=== PATIENT | female | born 1955 | race Caucasian/White ===

== ENCOUNTER → 2017-04-16 | Outpatient (CLI) | payer BC | LOC: ULTRA 09:24 | DX: M25.461 Effusion, right knee (principal); M79.89 Other specified soft tissue disorders ==

== ENCOUNTER → 2018-06-17 | Outpatient (CLI) | payer BC ==
[~2018-06-17] VITALS: Ht 157.5 cm; Wt 77.1 kg
[~2018-06-17] MED LIST: BENICAR40 MG PO; BYSTOLIC2.5 MG PO; HUMALOG100 UNIT/1 INH; METFORMIN HCL500 MG PO; PRAVACHOL40 MG PO; SYNTHROID75 MCG PO; ZETIA10 MG PO
--- NOTE | ~2018-06-17 | EKG ---
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
--- NOTE | ~2018-06-17 | CATHLAB ---
[facility] [place] [address] INVASIVE PROCEDURE REPORT Name: CHUY ALEX Room #: REG SELENA Marquez#: [id number] Admission: 06/17/18 Attend Phys: Keyshawn Khan, Discharge: Date of : 55 Date of Service: 06/17/181831 Report #: [id number] THIS REPORT FOR: //name// APPROVED REPORT Study performed: 06/17/2018 07:35:30 Patient Details Patient Status: Out-Patient Room #: The patient is a 63 year-old female Event Personnel Keyshawn Khan Walking Dragline Oiler, Slade Sky RN, Calos Bowers RN RN, Dejah Chan RTR, Francie Bergman Christine RTR Monitor, Christiano Castillo Monitor Procedures Performed Left Heart Cath w/or w/o Coronaries 6986955 [facility] Aortogram Abdominal Peripheral Angio 773861 Renal Bilateral Peripheral Angiography 8342959 CVRENALBIL Indication Chest pain Procedure Narrative The Right Groin^ was infiltrated with 1% Lidocaine subcutaneous anesthesia. A PINNACLE 6FR Sheath #[id number] sheath was inserted into the RFA^. Coronary angiography was performed using coronary diagnostic catheters. The right coronary system was accessed and visualized with a JR4 catheter. The left coronary system was accessed and visualized with a JL4 catheter. The left ventricle was accessed and visualized with a PIGTAIL catheter. Left ventriculogram was performed in 30 degree projection. An aortogram of the abdominal aorta was performed. Closure device was deployed with a 6 Fr MYNXGRIP 6/7F #[id number]. The patient tolerated the procedure well and there were no complications associated with the procedure. There was no hematoma. Intraoperative Conscious Sedation Sedation start time: 8.30 Case end Time: 8.58 Fentanyl 50 mcg Versed 1.5 mg Fluoro Time: 2.30 minutes Dose: DAP 3026.50 cGycm2 352 mGy [facility] [place] [address] [place] [address] INVASIVE PROCEDURE REPORT Name: [facility] Room #: [facility] [place]#: [id number] Admission: 06/17/18 Attend Phys: Keyshawn Khan, Discharge: Date of : 55 Date of Service: 06/17/18 1832 Report #: [id number] Contrast Type and Amount: Visipaque 130 ml Hemodynamics The aortic pressure is 141/71 mmHg with a mean of 54 mmHg. The left ventricular pressure is 135/24 mmHg with a mean of mmHg. The left ventricular end diastolic pressure is 34 mmHg. Conclusion #1 left main is mild ostial disease of 20-30% giving rise to LAD and circumflex #2 LAD is proximal calcification mild diffuse disease which extends around the apex. There is a mid vessel lesion long and smooth approaching 60-70%. Does not appear to be flow-limiting #3 circumflex OM proximal calcification with mild proximal disease mid vessel 30-40% giving rise to one large OM well preserved #4 dominant right coronary artery also with moderate diffuse calcification throughout focal area of higher density calcification in the distal third with the eccentric 50-60% lesion giving rise to diffusely disease PDA SUMI #5 selective renal artery injections revealed 20-30% irregularities single bilateral renal arteries ostial disease Recommendations and plan: Continue aggressive risk factor modification will add low-dose beta perry by systolic 2.5 mg for cardioprotection and vasodilatation. Patient is asymptomatic with small area of ischemia on stress echo anterior wall. We will have close follow-up and consider nuclear stress testing looking for extensive anterior wall ischemia otherwise would continue medical therapy. <ELECTRONICALLY SIGNED> By: Keyshawn Khan MD, FACC 06/17/181831 31 31 Keyshawn Khan MD, FACC /INF
[2018-06-17 07:27] VITALS: BP 110/70
[2018-06-17 07:42] LABS: HEMATOCRIT 40.2 % (37.0-47.0); HEMOGLOBIN 13.5 gm/dL (12.0-15.0); MCH 28.8 pg (26.0-34.0); MCHC 33.7 g/dL (28.0-37.0); MCV 85.6 fL (80.0-100.0); RBC 4.69 mil/uL (4.20-5.00); RDW 14.8 % (10.5-14.5); WBC 6.4 thou/uL (4.0-11.0)
[2018-06-17 07:51] LABS: CALCIUM 9.3 mg/dL (8.5-10.1); CREATININE 0.8 mg/dL (0.6-1.0); POTASSIUM 3.7 mmol/L (3.5-5.1)
== END | disposition home or self-care (01) ==
LOC: CATH 05:56
PROVIDERS: Internal Medicine Cardiovascular Disease
DX: I25.10 Atherosclerotic heart disease of native coronary artery without angina pectoris (principal); I70.1 Atherosclerosis of renal artery; I10 Essential (primary) hypertension; E11.9 Type 2 diabetes mellitus without complications; E78.00 Pure hypercholesterolemia, unspecified; Z90.49 Acquired absence of other specified parts of digestive tract; Z90.710 Acquired absence of both cervix and uterus; Z98.890 Other specified postprocedural states; Z79.899 Other long term (current) drug therapy

== ENCOUNTER 2018-11-12 23:28 | Emergency (ER) | payer BC ==
[~2018-11-12] VITALS: Ht 157.5 cm; Wt 72.6 kg
[2018-11-13 00:44] LABS: HCO3 24.4 mmol/L (22.0-26.0); PO2 VENOUS 52.5 mmHg (35.0-45.0)
[2018-11-13 00:45] LABS: ABSOLUTE NEUTROPHILS 3.6 thou/uL (1.4-8.2); BASOPHILS 1.3 % (0.0-2.0); EOSINOPHILS 3.2 % (0.0-3.0); HEMATOCRIT 35.8 % (37.0-47.0); HEMOGLOBIN 12.3 gm/dL (12.0-15.0); LYMPHOCYTES 39.6 % (24.0-44.0); MCH 29.7 pg (26.0-34.0); MCHC 34.3 g/dL (28.0-37.0); MCV 86.8 fL (80.0-100.0); MONOCYTES 9.2 % (1.0-8.0); PLATELET COUNT 367 thou/uL (150-400); POLYS 46.7 % (36.0-66.0); RBC 4.12 mil/uL (4.20-5.00); RDW 16.4 % (10.5-14.5); WBC 7.6 thou/uL (4.0-11.0)
[2018-11-13 00:57] LABS: CALCIUM 8.9 mg/dL (8.5-10.1); CREATININE 0.7 mg/dL (0.6-1.0); POTASSIUM 3.9 mmol/L (3.5-5.1)
[2018-11-13 01:18] LABS: URINE BILIRUBIN NEGATIVE (Negative); URINE BLOOD NEGATIVE (Negative); URINE CLARITY CLEAR; URINE COLOR YELLOW; URINE GLUCOSE-RANDOM* NEGATIVE (Negative); URINE KETONES NEGATIVE (Negative); URINE LEUKOCYTES NEGATIVE (Negative); URINE NITRITE NEGATIVE (Negative); URINE PROTEIN (DIPSTICK) NEGATIVE (Negative); URINE UROBILINOGEN 0.2 E.U./dl (0.2-1.0)
[2018-11-13 02:32] VITALS: BP 137/95
== END 2018-11-13 02:33 | disposition home or self-care (01) ==
LOC: ER 23:28
PROVIDERS: Student in an Organized Health Care Education/Training Program
DX: I10 Essential (primary) hypertension (principal); E11.9 Type 2 diabetes mellitus without complications; E78.00 Pure hypercholesterolemia, unspecified; Z90.710 Acquired absence of both cervix and uterus; Z90.89 Acquired absence of other organs; Z90.49 Acquired absence of other specified parts of digestive tract; Z96.659 Presence of unspecified artificial knee joint; Z87.442 Personal history of urinary calculi; Z79.4 Long term (current) use of insulin

== ENCOUNTER → 2020-02-18 | Outpatient (CLI) | payer BC | LOC: CAT 09:42 | DX: J34.2 Deviated nasal septum (principal); J32.9 Chronic sinusitis, unspecified ==

== ENCOUNTER → 2020-05-24 | Outpatient (CLI) | payer BC | LOC: SJCVCIMAG 09:57 | PROVIDERS: ATTEND Internal Medicine Cardiovascular Disease | DX: I49.3 Ventricular premature depolarization (principal); I25.10 Atherosclerotic heart disease of native coronary artery without angina pectoris; R93.1 Abnormal findings on diagnostic imaging of heart and coronary circulation; I10 Essential (primary) hypertension; E78.5 Hyperlipidemia, unspecified; E11.9 Type 2 diabetes mellitus without complications; Z79.4 Long term (current) use of insulin; Z79.82 Long term (current) use of aspirin; Z79.899 Other long term (current) drug therapy ==

== ENCOUNTER → 2020-07-23 | Outpatient (CLI) | payer BC ==
[~2020-07-23] MED LIST changes: +ASPIR 8181 MG PO; +EFFIENT10 MG PO
== END ==
LOC: SJCVC 09:30
PROVIDERS: ATTEND Internal Medicine Cardiovascular Disease
DX: R94.39 Abnormal result of other cardiovascular function study (principal); R06.02 Shortness of breath; I10 Essential (primary) hypertension; I25.10 Atherosclerotic heart disease of native coronary artery without angina pectoris; R93.1 Abnormal findings on diagnostic imaging of heart and coronary circulation; E78.00 Pure hypercholesterolemia, unspecified; E11.9 Type 2 diabetes mellitus without complications

== ENCOUNTER 2020-07-26 09:11 | Inpatient (IN) | payer BC ==
[~2020-07-26] VITALS: Ht 157.5 cm; Wt 76.2 kg
[2020-07-26] VITALS (15 sets, daily range): BP systolic 112–143; BP diastolic 63–80
[~2020-07-26 09:11] MED LIST changes: -ASPIR 8181 MG PO; -EFFIENT10 MG PO
[2020-07-26 10:19] LABS: ABSOLUTE NEUTROPHILS 3.1 thou/uL (1.4-8.2); BASOPHILS 1.1 % (0.0-2.0); HEMATOCRIT 35.9 % (37.0-47.0); LYMPHOCYTES 28.7 % (24.0-44.0); MCH 28.9 pg (26.0-34.0); MCHC 33.5 g/dL (28.0-37.0); MCV 86.2 fL (80.0-100.0); PLATELET COUNT 361 thou/uL (150-400); POLYS 59.2 % (36.0-66.0); RBC 4.16 mil/uL (4.20-5.00); RDW 14.8 % (10.5-14.5); WBC 5.3 thou/uL (4.0-11.0)
[2020-07-26 10:28] LABS: ANION GAP 12 mmol/L (7-16); BUN 13 mg/dL (7-18); CALCIUM 9.2 mg/dL (8.5-10.1); CHLORIDE 102 mmol/L (98-107); CO2 26 mmol/L (21-32); CREATININE 0.8 mg/dL (0.6-1.0); GLUCOSE 181 mg/dL (74-106); POTASSIUM 3.9 mmol/L (3.5-5.1); SODIUM 140 mmol/L (136-145)
[2020-07-26 10:38] LABS: TROPONIN-I <0.06 ng/mL (<0.06)
--- NOTE | 2020-07-26 18:29 | CATHLAB ---
[facility] [place] [address] INVASIVE PROCEDURE REPORT Name: CHUY ALEX Room #: 211-P ADM IN M.R.#: [id number] Admission: 07/26/20 Attend Phys: Keyshawn Khan MD, Discharge: Date of : 55 Report #: [id number] THIS REPORT FOR: cc: FAM - Family physician unknown FAM - Family physician unknown Keyshawn Khan MD [facility] ~ APPROVED REPORT Study performed: 07/26/2020 13:45:40 Patient Details The patient is a 65 year-old female Event Personnel Keyshawn Khan Policy Intern, Saurav Jackman RN RN, Ambika Costello Lock, Alison RT(R)() Monitor Procedures Performed Art Access - R femoral artery* Left Heart Cath w/or w/o Coronaries 4052526 [facility] [address] Place w/wo Plasty Single LAD 674135 Hemostasis w/ Mynx 88514 Initial Mod Sed Same Phys/QHP Gr5y 318591 06827 Mod Sed Same Phys/QHP Ea 615532 Procedure Narrative The patient was brought urgently to the Cardiac Catheterization Laboratory and was prepped and draped in a sterile manner. The Right Groin^ was infiltrated with 1% Lidocaine subcutaneous anesthesia. A PINNACLE 6FR Sheath #[id number] sheath was inserted into the RFA 6F^. Coronary angiography was performed using coronary diagnostic catheters. The right coronary system was accessed and visualized with a JR4 catheter. The left coronary system was accessed and visualized with a JL4 catheter. The left ventricle was accessed and visualized with a PIGTAIL catheter. Closure device was deployed with a 6 Fr MYNXGRIP. The patient tolerated the procedure well and there were no complications associated with the procedure. There was no hematoma. Intraoperative Conscious Sedation Fentanyl 100 mcg Versed 2 mg Fluoro Time: 11.50 minutes Dose: DAP 01361.10 cGycm2 Contrast Type and Amount: Omnipaque 205 ml [facility] [place] [place] [address] INVASIVE PROCEDURE REPORT Name: [facility] Room #: 211-P [facility] IN M.R.#: [id number] Admission: 07/26/20 Attend Phys: Keyshawn Khan, Discharge: Date of : 55 Report #: [id number] Hemodynamics The aortic pressure is 122/60 mmHg with a mean of 88 mmHg. The left ventricular pressure is 122/4 mmHg with a mean of mmHg. The left ventricular end diastolic pressure is 19 mmHg. PCI Technique Lesion Percutaneous coronary intervention was performed on the proximal left anterior descending artery segment. A LAUNCHER 6FR EBU 3.5 #[id number] Guide Catheter was used to engage the ostium. A Luge Wire .014 x 182CM #[id number] Interventional Guidewire was used to cross the lesion. BALLOON DILATION A Balloon catheter Sprinter OTW 2.5 x 12 #[id number] was inserted and inflated up to 4.00atm for 9seconds. Additional Inflation: 10.00atm for 26seconds. STENT DEPLOYMENT A drug-eluting stent RESOLUTE RICARDO OTW 2.5 X 18 #[id number] was inserted and inflated up to 8.00atm for 19seconds. Additional Inflation: 12.00atm for 25seconds. POST STENT DEPLOYMENT BALLOON DILATION A Balloon catheter TREK NC RX 2.75 X 8 #[id number] was inserted and inflated up to 16.00atm for 21seconds. Additional Inflation: 8.00atm for 24seconds. Additional Inflation: 15.00atm for 18seconds. STENT DEPLOYMENT A stent RESOLUTE RICARDO OTW 2.5 X 8 #[id number] was inserted and inflated up to 12.00atm for 31seconds. Additional Inflation: 15.00atm for 19seconds. Additional Inflation: 20.00atm for 16seconds. Additional Inflation: 20 denys for 17 sec Conclusion #1. Successful PTCA stent of a proximal eccentric calcified LAD lesion placement of a 2.5 x 18 and 2.5 x 8 resolute [place] stents with jailing of a diagonal branch but no change in flow postdilated 2.7 mm GREG grade III flow. The proximal stent was postdilated to nearly 3.0 mm. Moderate diffuse disease distally around the apex. #2 left main with mild ostial disease of 40% will follow #3 circumflex OM with mild disease nondominant vessel #4 dominant right coronary with mild disease and calcification eccentric distal mid distal lesion of 650 to 60% unchanged giving rise to diffusely diseased small PDA SUMI #5 normal left jugular size and systolic function EF 60% [facility] [address] [place] [address] INVASIVE PROCEDURE REPORT Name: CHUY ALEX Room #: 211-P ADM IN M.Lauren.#: [id number] Admission: 07/26/20 Attend Phys: Keyshawn Khan, Discharge: Date of : 55 Report #: [id number] Recommendations and plan: Continue aggressive risk factor modification. Significant coronary calcification with moderate disease as noted above. Successful intervention to LAD as noted above. Dual antiplatelet therapy will continue to CCU to follow post stent protocol. Pain-free hemodynamically stable. <ELECTRONICALLY SIGNED> By: Keyshawn Khan MD, [facility] 07/26/201827 27 27 Keyshawn Khan MD, FACC /INF
[2020-07-27] VITALS: BP 125/69
[2020-07-27 00:05] VITALS: BP 125/69
[2020-07-27 03:35] VITALS: BP 121/65
[2020-07-27 05:28] LABS: HEMATOCRIT 34.8 % (37.0-47.0); HEMOGLOBIN 11.8 gm/dL (12.0-15.0); MCH 29.2 pg (26.0-34.0); MCHC 33.8 g/dL (28.0-37.0); MCV 86.5 fL (80.0-100.0); RBC 4.03 mil/uL (4.20-5.00); RDW 14.6 % (10.5-14.5); WBC 7.1 thou/uL (4.0-11.0)
[2020-07-27 05:56] LABS: ALBUMIN 3.1 g/dL (3.4-5.0); CALCIUM 8.3 mg/dL (8.5-10.1); CREATININE 0.8 mg/dL (0.6-1.0); POTASSIUM 3.8 mmol/L (3.5-5.1); TOTAL BILIRUBIN 0.4 mg/dL (0.2-1.0); TOTAL PROTEIN 6.1 g/dL (6.4-8.2); TROPONIN-I 0.36 ng/mL (<0.06)
[2020-07-27] MEDS ORDERED: ASPIR 8181 MG PO ×2 (07:19)
[2020-07-27] MEDS ORDERED: EFFIENT10 MG PO ×2 (07:19)
--- NOTE | 2020-07-27 07:39 | EKG ---
[facility] [place] [address] ELECTROCARDIOGRAM REPORT [facility] Room #: 211- ADM IN M.R.#: [id number] Admission: 07/26/20 Attend Phys: Keyshawn Khan MD, Discharge: Date of : 55 Report #: [id number] THIS REPORT FOR: cc: FAM - Family physician unknown FAM - Family physician unknown David Miller MD [facility] THIS REPORT FOR: //name// [facility] ED Test Date: 2020-07-26 Test Time: 09:23:53 Pat Name: [facility] Department: Room: [facility] Gender: F Painter Drum: ESHEETS : 1955 Requested By: Jt Franklin Order Number: [id number] MD: David Miller Measurements Intervals [place] Rate: 63 P: 65 [place]: 151 QRS: 33 QRSD: 112 T: 35 QT: 455 QTc: 466 Interpretive Statements Sinus rhythm Poor R wave progression Nonspecific ST segment abnormality Compared to ECG 06/17/2018 07:33:[address] segment abnormality is now present Electronically Signed On 07-27-2020 7:38:47 CDT by David Miller [email or web address] <ELECTRONICALLY SIGNED> By: David Miller MD, [facility] 07/27/20 0738 2 2 David Miller MD, [facility] /EPI
[2020-07-27 07:50] VITALS: BP 123/85
--- NOTE | 2020-07-27 07:53 | EKG ---
[facility] [place] [address] ELECTROCARDIOGRAM REPORT Name: [facility] Room #: 211- ADM IN M.R.#: [id number] Admission: 07/26/20 Attend Phys: Keyshawn Khan MD, Discharge: Date of : 55 Report #: [id number] THIS REPORT FOR: cc: FAM - Family physician unknown FAM - Family physician unknown David Miller MD [facility] THIS REPORT FOR: //name// [facility] Test Date: 2020-07-27 Test Time: 07:12:52 Pat Name: [facility] Department: Room: 211 Gender: F Wedger Machine: MYRTLE : 1955 Requested By: Keyshawn Khan Order Number: [id number] MD: David Miller Measurements Intervals [place] Rate: 60 P: 73 VA: 157 QRS: 32 QRSD: 99 T: 51 QT: 498 QTc: 498 Interpretive Statements Sinus rhythm Nonspecific ST and T wave abnormality Borderline prolonged QT interval Compared to ECG 07/26/2020 09:23:53 No significant changes Electronically Signed On 07-27-2020 7:52:56 CDT by David Miller [email or web address] <ELECTRONICALLY SIGNED> By: David Miller MD, [facility] 07/27/20 0752 1 1 David Miller MD, [facility] /EPI
[2020-07-27 09:39] VITALS: BP 123/85
== END 2020-07-27 10:20 | disposition home or self-care (01) | DRG 247 ==
LOC: ER 09:11 → EROBS 10:36 → 2N 10:36
PROVIDERS: Emergency Medicine; ADMIT Internal Medicine Cardiovascular Disease; ATTEND Internal Medicine Cardiovascular Disease
PROC: 3E053PZ Introduction of Platelet Inhibitor into Peripheral Artery, Percutaneous Approach (ICD-10-PCS; principal; 2020-07-26)
PROC: 4A023N7 Measurement of Cardiac Sampling and Pressure, Left Heart, Percutaneous Approach (ICD-10-PCS; principal; 2020-07-26)
PROC: 027035Z Dilation of Coronary Artery, One Artery with Two Drug-eluting Intraluminal Devices, Percutaneous Approach (ICD-10-PCS; principal; 2020-07-26)
PROC: B2111ZZ Fluoroscopy of Multiple Coronary Arteries using Low Osmolar Contrast (ICD-10-PCS; principal; 2020-07-26)
DX: I25.110 Atherosclerotic heart disease of native coronary artery with unstable angina pectoris (principal); I10 Essential (primary) hypertension; E78.5 Hyperlipidemia, unspecified; E78.00 Pure hypercholesterolemia, unspecified; E11.9 Type 2 diabetes mellitus without complications; I70.1 Atherosclerosis of renal artery; Z96.659 Presence of unspecified artificial knee joint; Z20.828 Contact with and (suspected) exposure to other viral communicable diseases; Z90.710 Acquired absence of both cervix and uterus; Z90.49 Acquired absence of other specified parts of digestive tract; Z79.84 Long term (current) use of oral hypoglycemic drugs; Z79.899 Other long term (current) drug therapy; Z79.4 Long term (current) use of insulin; Z88.5 Allergy status to narcotic agent
CPT/HCPCS: 10081

== ENCOUNTER → 2021-04-14 | Outpatient (CLI) | payer BC ==
[~2021-04-14] MED LIST changes: +ASPIR 8181 MG PO; +EFFIENT10 MG PO
== END ==
LOC: SJCVC 14:48
PROVIDERS: ATTEND Internal Medicine Cardiovascular Disease
DX: I25.10 Atherosclerotic heart disease of native coronary artery without angina pectoris (principal); I10 Essential (primary) hypertension; E78.00 Pure hypercholesterolemia, unspecified; E10.8 Type 1 diabetes mellitus with unspecified complications; E66.9 Obesity, unspecified; G47.33 Obstructive sleep apnea (adult) (pediatric); Z79.82 Long term (current) use of aspirin; Z79.899 Other long term (current) drug therapy; Z88.5 Allergy status to narcotic agent; Z88.1 Allergy status to other antibiotic agents